=== PATIENT | male | born 1940 | race Caucasian/White ===

== ENCOUNTER → 2017-05-25 | Outpatient (CLI) | payer OTHER, BC ==
[~2017-05-25] MED LIST: CIPROFLOXACIN500 M1 PO; FENOFIBRATE134 MG PO; FLAGYL500 MG PO; HYDROCHLOROTHIA25 M1 PO; LISINOPRIL40 MG PO; LORTAB 5 MG/5001 TA1 PO; PHENERGAN 25 MG25 M1 PO
== END ==
LOC: ULTRA 14:35
DX: M79.604 Pain in right leg (principal)